=== PATIENT | male | born 2000 | race Caucasian/White ===

== ENCOUNTER 2024-01-04 23:37 | Emergency (ER) | payer MEDICAID, SELFPAY ==
[2024-01-04 23:38] VITALS: BMI 23.8
--- NOTE | 2024-01-04 23:42 | EKG_ITS ---
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
[2024-01-04 23:53] VITALS: BP 142/89; PULSE 85; RESP 18; TEMP 36.8; O2SAT 100
--- NOTE | 2024-01-05 00:11 | XR_ITS ---
Examination: Abdomen sonogram, Limited Date and time of exam: January 05, 2024 0217 hrs. Indications: Onset right upper abdominal pain beginning 4 days ago Technique: Real-time vallecillo scale transabdominal sonographic images of the upper abdomen obtained. Findings: Negative for cholelithiasis, negative for cholecystitis, gallbladder wall 0.3 cm no edema Common bile duct 0.2 cm Pancreatic head 2.9 cm Liver 14.5 cm smooth contour fatty infiltration no focal liver lesions Normal hepatopedal portal venous flow Patent IVC Impression: Normal gallbladder Fatty liver
--- NOTE | 2024-01-05 00:12 | EDRME_ITS ---
Rapid Medical Screening Exam COUNT INCLUDES THE [facility] Arrival date/time: 01/04/24 23:37 23M with no significant PMH presents to ED with 4 days of worsening RUQ/epigastric pain that radiates to chest. Patient also notes he's had some constipation and difficulty urinating, but denies dysuria and URI symptoms. Chief Complaint: Chest Pain Vital signs: Vital Signs Temperature 98.2 F 01/04/24 23:53 Pulse Rate 85 01/04/24 23:53 Respiratory Rate 18 01/04/24 23:53 Blood Pressure 142/89 H 01/04/24 23:53 Pulse Oximetry (%) 100 01/04/24 23:53 Oxygen Delivery Method Room Air 01/04/24 23:53
[2024-01-05] MEDS: ONDANSETRON ODT 4 MG TABRAP PO (00:25)
[2024-01-05 00:37] LABS: Collection Type, Urine Clean Catch
[2024-01-05 00:58] LABS: Alanine Aminotransferase 8 U/L (10-49); Albumin, Serum 5.1 gm/dL (3.5-5.0); Albumin/Globulin Ratio 1.8 (1.2-2.2); Alkaline Phosphatase 74 U/L (46-116); Anion Gap 10 (7-16); Aspartate Amino Transferase 15 U/L (0-34); BUN/Creatinine Ratio 10 Ratio (12-20); Basophils % (Auto) 0 % (0-2.5); Bilirubin,Total 0.6 mg/dL (0.3-1.2); Blood Urea Nitrogen 12 mg/dL (9-23); Chloride 103 mMol/L (98-107); Creatinine (Component) 1.2 mg/dL (0.6-1.3); Eosinophils % (Auto) 0 % (0-10); Estimated Creatinine Clearance 112.5 mL/min (>60); Globulin 2.8 gm/dL (2.3-3.5); Glucose 105 mg/dL (74-106); Hematocrit 45.9 % (41.0-53.0); Hemoglobin 16.6 g/dL (13.5-16.0); Immature Granulocytes % (Auto) 0 % (0-0); Immature Granulocytes Auto 0.04 Thou/mm3 (0.00-0.00); Lipase 29 U/L (12-53); Lymphocytes # (Auto) 2.5 Thou/mm3 (1.0-4.8); Lymphocytes % (Auto) 19 % (10-50); Mean Corpuscular HGB Conc 36.2 g/dl (31.0-37.0); Mean Corpuscular Hemoglobin 30.4 pg (25.0-35.0); Mean Corpuscular Volume 84 fL (80-100); Monocytes # (Auto) 0.7 Thou/mm3 (0.0-0.8); Monocytes % (Auto) 5 % (0-12); Neutrophils # (Auto) 10.1 Thou/mm3 (1.8-7.7); Neutrophils % (Auto) 75 % (37-80); Nucleated Red Blood Cell % 0 /100 WBC (0); Osmolality,Calculated 277 (275-295); Platelet Count 297 Thou/mm3 (140-440); Potassium 3.6 mMol/L (3.4-5.1); RDW Standard Deviation 36.2 fL (35.1-43.9); Red Blood Count 5.46 Miln/mm3 (4.50-5.90); Sodium 139 mMol/L (136-145); Total Protein 7.9 gm/dL (5.7-8.2); White Blood Count 13.4 Thou/mm3 (3.8-10.6); eGFR > 60 See Note
[2024-01-05 01:02] LABS: Bilirubin,Urine Negative (Negative); Blood,Urine Negative (Negative); Clarity,Urine Clear (Clear/Hazy); Color,Urine Yellow (Lt Yel-Yel); Glucose, Urine Negative (Negative); Ketones,Urine Negative (Negative); Leukocyte Esterase,Urine Positive (Negative); Nitrite,Urine Negative (Negative); Protein,Urine 1+ (Neg - Trace); Urobilinogen,Urine Negative mg/dL (0.0-1.0)
[2024-01-05 01:03] LABS: RBC,Urine 5 /hpf (0-3); Squamous Epithelial Cell,Urine < 1 /hpf (0-5); WBC,Urine 36 /hpf (0-5)
[2024-01-05 01:05] LABS: Amphetamine/Methamp Scrn,U Negative (Negative); Barbiturate Screen,Urine Negative (Negative); Benzodiazepines Screen,Urine Negative (Negative); Benzoylecgonine Screen, Ur Negative (Negative); Fentanyl Screen,Urine Negative (Negative); Opiate Screen,Urine Negative (Negative); THC Screen,Urine Positive (Negative)
[2024-01-05 01:11] LABS: Culture Indicated,Urine Yes
--- NOTE | 2024-01-05 01:27 | EDNOTE_ITS ---
ED Chest Pain RME/HPI General Chief Complaint: Chest Pain Stated Complaint: CHEST PAIN X 4 DAYS Arrival date/time: 01/04/24 23:37 Limitations: no limitations RME / HPI RME / HPI narrative: 01/04/24 23:37 23M with no significant PMH presents to ED with 4 days of worsening RUQ/epigastric pain that radiates to chest. Patient also notes he's had some constipation and difficulty urinating, but denies dysuria and URI symptoms. ----- Dr. Awad's Main ED Evaluation: 23yo male with no significant past medical history presents to the ED for a chief complaint of shortness of breath x 4 da ys. Patient states he woke up 4 days ago and began having shortness of breath. He reports associated chest pain (7 out of 10 in severity), right rib/RUQ pain, and nausea. He states his symptoms have been progressively getting worse over the last 6 hours, so he came in for evaluation. He denies any fever, chills, UTI symptoms or any other associated symptoms. Denies any history of similar symptoms. Denies any aggravating or alleviating factors. Patient endorses last smoking marijuana 5 days ago. Related Data Previous Rx's ?Medication ?Instructions ?Recorded ibuprofen 600 mg tablet 600 mg PO Q6-8HRPRN ##20 07/09/11 Allergies Allergy/AdvReac Type Severity Reaction Status Date / Time cephalexin [From Keflex] Allergy Mild Difficulty Verified 01/04/24 23:43 Breathing Review of Systems Review of Systems Systems Reviewed: All systems reviewed, normal except as documented ED Exam General Limitations: Present no limitations General appearance: Present alert and in no apparent distress Head Head exam: Present atraumatic Eye Eye exam: Present normal appearance, PERRL and EOMI ENT ENT exam: Present normal exam, normal oropharynx and mucous membranes moist Neck Neck exam: Present normal inspection, full ROM and trachea midline Chest Chest inspection: Present normal inspection and symmetric chest wall rise Respiratory Respiratory exam: Present normal lung sounds bilaterally Cardiovascular Cardiovascular exam: Present regular rate, normal rhythm and normal heart sounds Abdominal Exam Abdominal exam: Present soft and normal bowel sounds; Absent rebound or mass Extremities Exam Extremities exam: Present normal inspection and full ROM Back Exam Back exam: Present normal inspection and full ROM Neurological Exam Neurological exam: Present alert, oriented X3 and CN II-XII intact Psychiatric Psychiatric exam: Present normal affect and normal mood Skin Skin exam: Present warm, dry, intact and normal color; Absent pallor Course Quality Measures none Orders Category Date Time Status CT Screening NOW Care 01/05/24 01:32 Completed EKG (ED ONLY) *Do not use* NOW Care 01/04/24 23:42 Completed IV [Insert IV] NOW Care 01/05/24 01:[address] chest abdomen pelvis w Stat Exams 01/05/24 01:32 Taken EKG (ED Only) Stat Exams 01/04/24 23:42 Draft US gall bladder Stat Exams 01/05/24 00:11 Taken CBC Stat Lab 01/05/24 00:32 Completed CMP [Comprehensive Metabolic Panel] Stat Lab 01/05/24 00:32 Completed Drug Screen,Urine Stat Lab 01/05/24 00:25 Completed Lipase Stat Lab 01/05/24 00:32 Completed Urinalysis, C/S if Indicated Stat Lab 01/05/24 00:25 Completed Urine Culture Stat Lab 01/05/24 00:25 Received Ketorolac Inj [Toradol Inj] Med 01/05/24 01:34 Discontinued 30 mg IVP X1 ONE Ondansetron Inj [Zofran Inj] Med 01/05/24 01:34 Discontinued 4 mg IV X1 ONE Ondansetron Odt [Zofran Odt] Med 01/05/24 00:11 Discontinued 4 mg PO X1 ONE Sodium Chloride 0.9% 500 ml [Ns] 500 ml Med 01/05/24 01:32 Discontinued IV 999 mls/hr Vital Signs Vital signs: Vital Signs Temperature 98.2 F 01/04/24 23:53 Pulse Rate 85 01/04/24 23:53 Respiratory Rate 18 01/04/24 23:53 Blood Pressure 142/89 H 01/04/24 23:53 Pulse Oximetry (%) 100 01/04/24 23:53 Oxygen Delivery Method Room Air 01/04/24 23:53 Pulse ox is 100% on room air, which is normal according to my interpretation. Chest Pain Patient data External records reviewed:: [facility] previous records (Per chart review, patient has no previous ED visits or admissions to this facility.) Clinical information provided by:: patient Social determinants that could affect healthcare access:: substance use (smokes marijuana) Patient has the following chronic illnesses:: none How is presenting disease/condition affected by chronic disease/condition?: no chronic disease Evaluation data The following diagnostics were reviewed and interpreted by me:: lab results, radiology exam(s) and EKG tracing(s) Lab and/or radiology exams considered but not ordered:: none Interpretation Summary: WBC count is elevated at 13.4, CMP is normal, UDS is positive for marijuana, according to my interpretation. ----- I have personally reviewed the radiology data and agree with the radiologist's interpretation below: [facility] Preliminary Report Draft Patient: RAND ACEVEDO. Record#: [id number] Birthdate: 2000 Age/Sex: 23 / M Location: [facility] Attending Dr: Ordering Physician: Date of Service: Procedure(s): Accession Number(s): cc: ~ Right upper quadrant abdominal ultrasound. January 05, 2024 0217 hours Clinical history: RUQ/epigastric pain Technique: Grayscale and color flow images of the right upper quadrant are provided. Hepatic and portal veins were also imaged with color flow images. Comparison: No prior study is available for comparison. Findings: The liver is normal in size, measuring 14.5 cm and demonstrates slightly heterogeneous echotexture. There is smooth contour of the liver. No intrahepatic biliary ductal dilatation. The gallbladder is distended. No gallbladder calculus, wall thickening or pericholecystic fluid is demonstrated. Sonographic Roman sign is negative as per the technologist's note. The common bile duct is normal in caliber at 0.15 cm. The pancreatic body and tail are obscured by bowel gas.The inferior vena cava is unremarkable to the extent visualized. Impression: No sonographic evidence of cholelithiasis, acute cholecystitis or biliary obstruction. Slightly heterogeneous liver, likely fatty infiltration. Report Electronically Signed By: Dawson Bowen 01/05/2024 3:02:34 AM [EST] ------ [facility] Preliminary Report Draft Patient: RAND ACEVEDO. Record#: [id number] Birthdate: 2000 Age/Sex: 23 / M Location: [facility] Attending Dr: Ordering Physician: Date of Service: Procedure(s): Accession Number(s): cc: ~ CT scan of the chest, abdomen and pelvis with intravenous contrast (axial sections with sagittal and coronal reformats) January 05, 2024 0251 hours Clinical History: 23-yo right rib and ruq pain x 4 No prior study is available for comparison. Findings: The lungs are clear. There is no pleural effusion or pneumothorax. The aorta is unremarkable without evidence of dissection or aneurysm. No evidence of mediastinal mass or lymphadenopathy. There is no pericardial effusion. The liver, gallbladder, spleen, pancreas, adrenals and kidneys are unremarkable. No evidence of bowel obstruction. The appendix is within normal limits (coronal images 48-66/143). The urinary bladder is unremarkable. There is no free fluid or air. No fracture is identified. Impression: No visceral or bony injury to the chest, abdomen or pelvis. Report Electronically Signed By: Markie Siu 01/05/2024 3:33:41 AM [EST] Medications / Prescriptions Medications or Prescriptions considered but not ordered:: none Medication administrations:: Medication Administration History Discontinued Medications Sodium Chloride (Ns) 500 mls @ 999 mls/hr IV .Q31M ONE Stop: 01/05/24 02:02 Last Infusion: 01/05/24 03:25 Dose: Infused Documented By: Admin: 01/05/24 02:06 Dose: 999 mls/hr Documented By: PITO Ketorolac Tromethamine (Ketorolac Inj 30 Mg/Ml Vial) 30 mg IVP X1 ONE Stop: 01/05/24 01:35 Last Admin: 01/05/24 02:06 Dose: 30 mg Documented By: PITO Ondansetron HCl (Ondansetron Odt 4 Mg Tabrap) 4 mg PO X1 ONE; Protocol Stop: 01/05/24 00:12 Last Admin: 01/05/24 00:25 Dose: 4 mg Documented By: SRAVANTHI Ondansetron HCl (Ondansetron Inj 2 Mg/Ml Inj 2 Ml) 4 mg IV X1 ONE; Protocol Stop: 01/05/24 01:35 Last Admin: 01/05/24 02:06 Dose: 4 mg Documented By: PITO see above Consultations Consultation(s) initiated? (list below): No Diagnosis Chest Pain Differential Diagnosis: fracture of rib, pneumothorax, costochondritis and chest pain Most likely diagnosis given after review of the tests above:: see below Admission Indicated Admission indicated?: not indicated Admission Request Was there a request for admission?: No Disposition Plan Disposition Plan: Discharge Discharge Attestation Discharge Attestation: The patient and all family members were given an opportunity to ask questions and understood the discharge instructions. Discharge instructions specifically effects, indications for sooner follow up or return to the emergency department, and the expected course of current diagnosis. Patient condition: Stable Discharge Plan Plan Patient Disposition: HOME (Self Care) Patient condition on transfer: Stable Prescriptions/Referrals Prescriptions/Med Rec: No Action ibuprofen 600 MG tablet 600 mg PO Q6-8HRPRN Qty: 20 0RF Referrals: No Primary/Family,Physician [Primary Care Provider] - In 1 week Problem List Clinical Impression: Atypical chest pain Patient/Caregiver Discharge Instructions Education Materials: ED Chest Pain, Uncertain Cause Additional Instructions: Return to the emergency department for worsening symptoms or any other concerns. Please follow-up with your primary care physician as needed for pain. Stay hydrated with Pedialyte and Gatorade. Print Language: Samoan Stand Alone Forms: [facility] Award Info., Patient Portal Info Letter
--- NOTE | 2024-01-05 01:32 | XR_ITS ---
Examination: CT chest with intravenous contrast CT abdomen with intravenous contrast CT pelvis with intravenous contrast 2-D coronal and sagittal reconstructions Time of exam: January 05, 2024 0251 hrs. Indications: Chest pain right rib pain right upper abdominal pain beginning 4 days ago CTDI: vol (mGy) : 8.92 DLP: (mGycm): 837 Technique: Multiple axial images of the chest, abdomen and pelvis with intravenous contrast, 3.0 mm slice thickness. Images obtained post intravenous injection Isovue 370 60 cc. 2-D sagittal and coronal reconstructions. Low dose protocols were performed. One or more of the following dose reduction techniques were used; automated exposure control, adjustment of the mA and/or KV according to patient size, use of iterative reconstruction technique. Findings: Thoracic aorta pulmonary arteries intact No hemopericardium No mediastinal lymphadenopathy No pneumonia, pneumothorax, pulmonary contusion or hemothorax The manubrium and the body the sternum the thoracic and lumbar vertebral bodies appear intact Ribs appear intact No focal liver splenic or renal laceration, no perinephric hematoma Contracted gallbladder No pancreatic mass Abdominal aorta intact No bowel obstruction Negative for pneumoperitoneum Normal appendix No diverticulitis Urinary bladder intact Hips bones of the pelvis intact Impression: Thoracic aorta pulmonary arteries intact No hemopericardium, pneumothorax, pulmonary contusion or hemothorax Abdominal aorta intact No abdominal parenchymal laceration No free blood in the abdomen or pelvis Osseous structures appear intact
[2024-01-05 02:02] VITALS: BP 140/87; PULSE 76; RESP 15; O2SAT 100
[2024-01-05] MEDS: SODIUM CHLORIDE 0.9% 500 ML 500 ML 999 ML IV (02:06)
[2024-01-05] MEDS: KETOROLAC INJ 30 MG/ML VIAL IVP (02:06)
[2024-01-05] MEDS: ONDANSETRON INJ 2 MG/ML INJ 2 ML 4 MG IV (02:06)
--- NOTE | 2024-01-05 03:02 | PRELIM_ITS ---
Right upper quadrant abdominal ultrasound. January 05, 2024 0217 hours Clinical history: RUQ/epigast preston pain Technique: Grayscale and color flow images of the right upper quadrant are provided. Hepatic and portal veins were also imaged with color flow images. Comparison: No prior study is available fo r comparison. Findings:The liver is normal in size, measuring 14.5 cm and demonstrates slightly heter ogeneous echotexture. There is smooth contour of the liver. No intrahepatic biliary ductal dilatation . The gallbladder is distended. No gallbladder calculus, wall thickening or pericholecystic fluid is demonstrated. Sonographic Roman sign is negative as per the technologist's note. The common bile paulo t is normal in caliber at 0.15 cm. The pancreatic body and tail are obscured by bowel gas.The inferio r vena cava is unremarkable to the extent visualized.Impression:No sonographic evidence of cholelithi asis, acute cholecystitis or biliary obstruction. Slightly heterogeneous liver, likely fatty infiltra tion. Report Electronically Signed By: Dawson Bowen 01/05/2024 3:02:34 AM [EST]
--- NOTE | 2024-01-05 03:34 | PRELIM_ITS ---
CT scan of the chest, abdomen and pelvis with intravenous contrast (axial sections with sagittal and coronal reformats) January 05, 2024 0251 hours Clinical History: 23-yo right rib and ruq pain x 4 No prior study is available for comparison. Findings:The lungs are clear. There is no pleural effusion or pneumothorax. The aorta is unremarkable without evidence of dissection or aneurysm. No evidence of mediastinal mass or lymphadenopathy. There is no pericardial effusion.The liver, gallbladder, spleen , pancreas, adrenals and kidneys are unremarkable.No evidence of bowel obstruction. The appendix is w ithin normal limits (coronal images 48-66/143).The urinary bladder is unremarkable. There is no free fluid or air.No fracture is identified.Impression:No visceral or bony injury to the chest, abdomen or pelvis. Report Electronically Signed By: Markie Siu 01/05/2024 3:33:41 AM [EST]
[2024-01-05 04:55] VITALS: BP 113/69; PULSE 55; RESP 16; TEMP 37.2; O2SAT 100
== END 2024-01-05 05:05 | disposition home or self-care (01) ==
PROVIDERS: Physician Assistant; Emergency Provider Emergency Medicine
DX: K76.89 Other specified diseases of liver (principal); R07.89 Other chest pain; R10.13 Epigastric pain; R07.81 Pleurodynia
CPT/HCPCS: 36415; 71260; 74177; 76705; 80053; 80307; 81001; 83690; 85025; 87086; 93005; 96361; 96374; 96375; 99285; A4649; J1885; J2405; J7040; Q0162; Q9967

== ENCOUNTER 2024-06-16 22:28 | Emergency (ER) | payer MEDICAID, SELFPAY ==
[2024-06-16 22:28] VITALS: BMI 25.0
[2024-06-16 23:06] VITALS: BP 133/88; PULSE 82; RESP 18; TEMP 37.3; O2SAT 96
[2024-06-16 23:48] LABS: Lactate (Lactic Acid) 1.6 mMol/L (0.4-2.0)
[2024-06-16 23:49] LABS: Basophils % (Auto) 0 % (0-2.5); Eosinophils % (Auto) 0 % (0-10); Hematocrit 47.5 % (41.0-53.0); Hemoglobin 17.3 g/dL (13.5-16.0); Immature Granulocytes % (Auto) 0 % (0-0); Immature Granulocytes Auto 0.03 Thou/mm3 (0.00-0.00); Lymphocytes % (Auto) 27 % (10-50); Mean Corpuscular HGB Conc 36.4 g/dl (31.0-37.0); Mean Corpuscular Hemoglobin 30.7 pg (25.0-35.0); Mean Corpuscular Volume 84 fL (80-100); Monocytes # (Auto) 0.7 Thou/mm3 (0.0-0.8); Monocytes % (Auto) 6 % (0-12); Neutrophils # (Auto) 7.6 Thou/mm3 (1.8-7.7); Neutrophils % (Auto) 66 % (37-80); Nucleated Red Blood Cell % 0 /100 WBC (0); Platelet Count 283 Thou/mm3 (140-440); RDW Standard Deviation 35.8 fL (35.1-43.9); Red Blood Count 5.63 Miln/mm3 (4.50-5.90); White Blood Count 11.4 Thou/mm3 (3.8-10.6)
[2024-06-16] MEDS: ONDANSETRON ODT 4 MG TABRAP PO (23:58)
[2024-06-17] LABS: Amphetamine/Methamp Scrn,U Negative (Negative); Barbiturate Screen,Urine Negative (Negative); Benzodiazepines Screen,Urine Negative (Negative); Benzoylecgonine Screen, Ur Negative (Negative); Fentanyl Screen,Urine Negative (Negative); Opiate Screen,Urine Negative (Negative); THC Screen,Urine Positive (Negative)
--- NOTE | 2024-06-17 | XR_ITS ---
Examination: Abdomen sonogram, Limited Date and time of exam: June 17, 2024 0019 hours INDICATIONS: Right upper abdominal pain with nausea beginning 3 hours ago Technique: Real-time vallecillo scale transabdominal sonographic images of the upper abdomen obtained. Findings: Normal gallbladder Normal common bile duct 0.2 cm Pancreatic head 2.2 cm Liver 14.0 cm smooth contour and no focal liver lesions Normal hepatopedal portal venous flow Patent IVC IMPRESSION: Normal gallbladder Normal common bile duct. Liver normal size no focal liver lesions
[2024-06-17 00:32] LABS: Alcohol, Blood Medical < 3.0 mg/dL (0-10.0); Procalcitonin 0.06 ng/ml (0.0-0.49)
[2024-06-17 00:34] LABS: Alanine Aminotransferase 8 U/L (10-49); Albumin, Serum 4.9 gm/dL (3.5-5.0); Albumin/Globulin Ratio 1.8 (1.2-2.2); Alkaline Phosphatase 76 U/L (46-116); Anion Gap 10 (7-16); Aspartate Amino Transferase 17 U/L (0-34); BUN/Creatinine Ratio 12 Ratio (12-20); Bilirubin,Total 0.7 mg/dL (0.3-1.2); Blood Urea Nitrogen 14 mg/dL (9-23); Calcium 10.1 mg/dL (8.3-10.6); Calcium (Corrected) 10.1 mg/dL (8.5-10.1); Carbon Dioxide 26.4 mMol/L (20.0-31.0); Chloride 105 mMol/L (98-107); Creatinine (Component) 1.2 mg/dL (0.6-1.3); Estimated Creatinine Clearance 108.5 mL/min (>60); Globulin 2.8 gm/dL (2.3-3.5); Glucose 90 mg/dL (74-106); Lipase 25 U/L (12-53); Osmolality,Calculated 281 (275-295); Potassium 4.1 mMol/L (3.4-5.1); Sodium 141 mMol/L (136-145); Total Protein 7.7 gm/dL (5.7-8.2); eGFR > 60 See Note
[2024-06-17] MEDS: NAPROXEN 250 MG TABLET 500 MG PO (00:47)
--- NOTE | 2024-06-17 01:28 | PRELIM_ITS ---
Gallbladder ultrasound with Doppler and wave Doppler spectral analysis. June 17, 2024 at 0019 hours Clinical history: Right upper quadrant pain. Comparison: None available at the time of this report. Findings: The visualized liver is normal in echogenicity without mass or ductal dilatation. No gallbladder calculus, wall thickening or pericholecystic fluid is identified. The common duct is normal in caliber at 2.2 mm. No free fluid is demonstrated on the submitted images. The portal vein is patent with hepatopetal flow normal wave Doppler spectral analysis. The hepatic veins are patent with normal wave Doppler spectral analysis. The IVC is patent with normal wave Doppler spectral analysis. Roman's sign is not available at the time of this report. Impression: Unremarkable gallbladder sonogram. Report Electronically Signed By: Chad Amezcua 06/17/2024 1:27:15 AM [EST]
--- NOTE | 2024-06-17 02:44 | PD.EDABDPN ---
ED Abdominal Pain RME/HPI General Chief Complaint: Abdominal Pain Stated complaint: RIGHT LOWER ABD PAIN Time seen by provider: 06/16/24 23:17 Arrival date/time: 06/16/24 22:28 24M with history of marijuana use presents to ED with several days of RUQ and N/V. Patient denies dysuria/hematuria and diarrhea. Limitations: no limitations Related Data Previous Rx's ?Medication ?Instructions ?Recorded ibuprofen 600 mg tablet 600 mg PO Q6-8HRPRN ##20 07/09/11 Allergies Allergy/AdvReac Type Severity Reaction Status Date / Time cephalexin (From Keflex) Allergy Mild Difficulty Verified 01/04/24 23:43 Breathing Review of Systems Review of Systems Systems Reviewed: All systems reviewed, normal except as documented Constitutional Constitutional: Reports system reviewed and no additional complaints, except as documented, Denies fever(s) and Denies headache(s) ENT Ears, Nose, Mouth, and Throat: Denies disequilibrium and Denies headache(s) Cardiovascular Cardiovascular: Reports system reviewed and no additional complaints, except as documented, Denies chest pain and Denies dyspnea Respiratory Respiratory: Reports system reviewed and no additional complaints, except as documented, Denies cough and Denies dyspnea Gastrointestinal Gastrointestinal: Reports system reviewed and no additional complaints, except as documented, Reports as per HPI, Reports abdominal pain, Reports nausea and Reports vomiting Neurologic Neurologic: Reports system reviewed and no additional complaints, except as documented, Denies confusion, Denies disequilibrium and Denies headache(s) Psychiatric Psychiatric: Denies confusion Past Medical History Past Medical History CARDIAC: Negative Cardiac Disorders or Congestive Heart Failure RESPIRATORY: Negative Chronic Obstructive Pulmonary Disease (COPD) or Asthma GENITOURINARY: Negative Renal Disease ENDOCRINE: Negative Diabetes Mellitus Type 1 or Diabetes Mellitus Type 2 Social History SMOKING STATUS: Never smoker ED Exam General Limitations: Present no limitations General appearance: Present alert and in no apparent distress Head Head exam: Present atraumatic Eye Eye exam: Present normal appearance, PERRL and EOMI ENT ENT exam: Present normal exam, normal oropharynx and mucous membranes moist Neck Neck exam: Present normal inspection, full ROM and trachea midline Chest Chest inspection: Present normal inspection and symmetric chest wall rise Respiratory Respiratory exam: Present normal lung sounds bilaterally Cardiovascular Cardiovascular exam: Present regular rate, normal rhythm and normal heart sounds Abdominal Exam Abdominal exam: Present soft and normal bowel sounds Abdominal tenderness: Present RUQ Extremities Exam Extremities exam: Present normal inspection and full ROM Back Exam Back exam: Present normal inspection and full ROM Neurological Exam Neurological exam: Present alert, oriented X3 and CN II-XII intact Psychiatric Psychiatric exam: Present normal affect and normal mood Skin Skin exam: Present warm, dry, intact and normal color Course Quality Measures none Orders Category Date Time Status US gall bladder Stat Exams 06/17/24 00:00 Taken Alcohol, Blood Medical Stat Lab 06/16/24 23:32 Completed CBC Stat Lab 06/16/24 23:32 Completed CMP [Comprehensive Metabolic Panel] Stat Lab 06/16/24 23:32 Completed Drug Screen,Urine Stat Lab 06/16/24 23:29 Completed Lactate (Lactic Acid) Stat Lab 06/16/24 23:32 Completed Lipase Stat Lab 06/16/24 23:32 Completed Procalcitonin Stat Lab 06/16/24 23:32 Completed Naproxen [Naprosyn] Med 06/17/24 00:35 Discontinued 500 mg PO X1 ONE Ondansetron Odt [Zofran Odt] Med 06/16/24 23:18 Discontinued 4 mg PO X1 ONE Vital Signs Vital signs: Vital Signs Temperature 99.2 F 06/16/24 23:06 Pulse Rate 82 06/16/24 23:06 Respiratory Rate 18 06/16/24 23:06 Blood Pressure 133/88 H 06/16/24 23:06 Pulse Oximetry (%) 96 06/16/24 23:06 Oxygen Delivery Method Room Air 06/16/24 23:06 O2 at 96% on RA and WNLs Abdominal Pain MDM MDM Narrative MDM Narrative:: 24M with history of marijuana use presents to ED with several days of RUQ and N/V. Patient denies dysuria/hematuria and diarrhea. Physical exam reveals RUQ tenderness, but no RLQ tenderness. No flank tenderness. Patient is afebrile, calm, and alert. US unremarkable. Minimal leukocytosis. CMP, lipase normal. Alcohol/tox screen clean, except for admitted marijuana use. Procal/lactate normal. Meds improved symptoms somewhat. Patient declines CT as he doesn't want to wait anymore, but will return if worsening. Patient data External records reviewed:: [facility] previous records Clinical information provided by:: patient Social determinants that could affect healthcare access:: substance use Patient has the following chronic illnesses:: ab pain How is presenting disease/condition affected by chronic disease/condition?: exacerbated by Evaluation data The following diagnostics were reviewed and interpreted by me:: lab results and radiology exam(s) Lab and/or radiology exams considered but not ordered:: ordered Interpretation Summary: above Medications / Prescriptions Medications or Prescriptions considered but not ordered:: ordered Medication administrations:: Medication Administration History Discontinued Medications Naproxen (Naproxen 250 Mg Tablet) 500 mg PO X1 ONE Stop: 06/17/24 00:36 Last Admin: 06/17/24 00:47 Dose: 500 mg Documented By: JEAN-PIERRE Ondansetron HCl (Ondansetron Odt 4 Mg Tabrap) 4 mg PO X1 ONE; Protocol Stop: 06/16/24 23:19 Last Admin: 06/16/24 23:58 Dose: 4 mg Documented By: above Consultations Consultation(s) initiated? (list below): No Diagnosis Differential diagnosis abdominal pain: abdominal pain, acute appendicitis, calculus of kidney, constipation, diverticulitis, gastroenteritis, pancreatitis, small bowel obstruction and other (biliary disease) Most likely diagnosis given after review of the tests above:: ab pain Admission Indicated Admission indicated?: not indicated Admission Request Was there a request for admission?: No Disposition Plan Disposition Plan: Discharge Discharge Attestation Discharge Attestation: The patient and all family members were given an opportunity to ask questions and understood the discharge instructions. Discharge instructions specifically effects, indications for sooner follow up or return to the emergency department, and the expected course of current diagnosis. Patient condition: Stable Discharge Plan Plan Patient Disposition: HOME (Self Care) Disposition Comment: Stable Prescriptions/Referrals Prescriptions/Med Rec: No Action ibuprofen 600 MG tablet 600 mg PO Q6-8HRPRN Qty: 20 0RF Referrals: No Primary/Family,Physician [Primary Care Provider] - In 1 week Problem List Clinical Impression: Abdominal pain Patient/Caregiver Discharge Instructions Education Materials: Abdominal Pain Additional Instructions: Please follow-up with PCP within 24-48 hours and return immediately if symptoms worsen. Print Language: Serbian Stand Alone Forms: Patient Portal Info Letter LEO/PERRY Supervising Physician LEO/PERRY Supervising Physician: Dr. Michael
== END 2024-06-17 02:02 | disposition home or self-care (01) ==
PROVIDERS: Physician Assistant; Emergency Provider Emergency Medicine
DX: R10.31 Right lower quadrant pain (principal)
CPT/HCPCS: 36415; 76705; 80053; 80307; 80320; 83605; 83690; 84145; 85025; 99284; Q0162; A9270; G0480

== ENCOUNTER 2024-08-29 19:32 | Emergency (ER) | payer MEDICAID, SELFPAY ==
[2024-08-29 19:33] VITALS: BMI 24.3
[2024-08-29 19:55] VITALS: BP 142/94; PULSE 99; RESP 18; TEMP 37.2; O2SAT 97
--- NOTE | 2024-08-29 20:12 | EDNOTE_ITS ---
ED Dental RME/HPI General Chief complaint: Dental/Oral/Throat Stated complaint: I HAVE THRUSH, R. UPPER ABD PAIN, NAUSEA Time Seen by Provider: 08/29/24 19:33 Source: patient Arrival date/time: 08/29/24 19:32 This is a case of 24-year-old male who came in in the emergency room due to mult iple issue patient states that he has abdominal pain the day with nausea but no vomiting no constipation diarrhea pain is burning in character mainly on the epigastric area radiating to the right upper quadrant denies any blood in stool patient is also complaining of oral thrush on the mouth and sore throat no other symptoms noted patient also requested for GC culture but denies any exposure to STD Limitations: no limitations Related Data Previous Rx's ?Medication ?Instructions ?Recorded ibuprofen 600 mg tablet 600 mg PO Q6-8HRPRN ##20 07/02 azithromycin 250 mg tablet See Rx Instructions PO .COM PLEX #6 08/29/24 (Zithromax Z-Db) tabs fluconazole 100 mg tablet 100 mg PO QDAY #5 tabs 08/29 lidocaine HCl 2 % mucosal solution 10 ml PO Q4HR PRN s orethroat #100 08/29/24 (Lidocaine Viscous) mL nystatin 100,000 unit/mL oral 5 ml PO QID 5 days #100 mL 08/29/24 suspension omeprazole 40 mg capsule,delayed 40 mg PO QDAY #30 cap s 08/29/24 release ondansetron 4 mg disintegrating 4 mg PO Q8H PRN nausea and 08/29/24 tablet vomiting #20 tabs sulfamethoxazole 800 1 tab PO BID 10 days #20 tab s 08/29/24 mg-trimethoprim 160 mg tablet (Bactrim DS) Allergies Allergy/AdvReac Type Severity Reaction Status Date / Time cephalexin (From Keflex) Allergy Mild Difficulty Verified 08/29/24 19:33 Breathing Review of Systems Review of Systems Systems Reviewed: All systems reviewed, normal except as documented Constitutional Constitutional: Reports system reviewed and no additional complaints, except as documented, Denies chills and Denies fever(s) ENT Ears, Nose, Mouth, and Throat: Denies dysphagia, Denies odynophagia and Reports other (Oral thrush sore throat) Cardiovascular Cardiovascular: Reports system reviewed and no additional complaints, except as documented, Reports as per HPI, Denies acrocyanosis and Denies chest pain Respiratory Respiratory: Reports system reviewed and no additional complaints, except as documented and Reports as per HPI Gastrointestinal Gastrointestinal: Reports system reviewed and no additional complaints, except as documented, Reports abdominal pain, Denies belching, Denies bloating, Denies change in bowel habits, Denies change in stool character, Denies coffee ground emesis, Denies constipation, Denies cramping, Denies diarrhea, Denies dyspepsia, Denies dysphagia, Denies early satiety, Denies excessive flatus, Denies fecal incontinence, Denies heartburn, Denies hematemesis, Denies hematochezia, Denies loose stools, Denies melena, Reports nausea, Denies odynophagia, Denies tenesmus and Denies vomiting Genitourinary Genitourinary: Reports system reviewed and no additional complaints, except as documented and Denies dysuria Neurologic Neurologic: Reports system reviewed and no additional complaints, except as documented and Reports as per HPI Past Medical History Past Medical History CARDIAC: Negative Cardiac Disorders or Congestive Heart Failure RESPIRATORY: Negative Chronic Obstructive Pulmonary Disease (COPD) or Asthma GENITOURINARY: Negative Renal Disease ENDOCRINE: Negative Diabetes Mellitus Type 1 or Diabetes Mellitus Type 2 Social History SMOKING STATUS: Former smoker ED Exam General Limitations: Present no limitations General appearance: Present alert, in no apparent distress and other (Patient is awake alert oriented not in distress nontoxic looking well-hydrated well- nourished) Head Head exam: Present atraumatic, normocephalic and normal inspection Eye Eye exam: Present normal appearance, PERRL and EOMI ENT ENT exam: Present normal exam, normal oropharynx, mucous membranes moist and other (Nose and ear exam is normal patient have a white patch on the anterior tongue suggestive of oral thrush patient noted to have red pharynx and tonsils but not swollen no exudate no peritonsillar abscess no muffled voice no hot potato voice no drooling of saliva) Neck Neck exam: Present normal inspection, full ROM, trachea midline and other (No neck mass no lymphadenopathy negative meningeal sign) Chest Chest inspection: Present normal inspection and symmetric chest wall rise; Absent tenderness or rash Respiratory Respiratory exam: Present normal lung sounds bilaterally; Absent respiratory distress, wheezes, stridor, accessory muscle use or prolonged expiratory phase Cardiovascular Cardiovascular exam: Present regular rate and normal rhythm; Absent bradycardia, tachycardia, normal heart sounds, systolic murmur or diastolic murmur Abdominal Exam Abdominal exam: Present soft, tenderness (Mild tenderness in epigastric area and right upper quadrant), normal bowel sounds and other (Negative CVA tenderness); Absent distention, guarding, rebound, rigidity, diminished bowel sounds, hyperactive bowel sounds, hypoactive bowel sounds, organomegaly, trauma, incision, psoas sign, obturator sign, heel tap sign, Roman's sign, Rovsing's sign, tenderness at McBurney's Point, ascites or pulsatile mass Abdominal tenderness: Present RUQ, epigastrium and mild Extremities Exam Extremities exam: Present normal inspection and full ROM Back Exam Back exam: Present normal inspection and full ROM Neurological Exam Neurological exam: Present alert, oriented X3, CN II-XII intact, normal gait and reflexes normal; Absent motor sensory deficit Psychiatric Psychiatric exam: Present normal affect and normal mood Skin Skin exam: Present warm, dry, intact and normal color Course Quality Measures none Orders Category Date Time Status US gall bladder Stat Exams 08/29/24 20:13 Completed CBC Stat Lab 08/29/24 20:23 Completed CMP [Comprehensive Metabolic Panel] Stat Lab 08/29/24 20:23 Completed Chlamydia/GC/TV - PCR Stat Lab 08/29/24 Ordered Lipase Stat Lab 08/29/24 20:23 Completed Urinalysis Stat Lab 08/29/24 20:57 Completed Ketorolac Inj [Toradol Inj] Med 08/29/24 21:30 Discontinued 30 mg IM X1 ONE Ondansetron Odt [Zofran Odt] Med 08/29/24 20:03 Discontinued 4 mg PO X1 ONE Trimethoprim/Sulfa 160/800 Ds [Bactrim Ds] Med 08/29/24 21:42 Discontinued 1 tab PO X1 ONE Vital Signs Vital signs: Vital Signs Temperature 98.9 F 08/29/24 19:55 Pulse Rate 99 08/29/24 19:55 Respiratory Rate 18 08/29/24 19:55 Blood Pressure 142/94 H 08/29/24 19:55 Pulse Oximetry (%) 97 08/29/24 19:55 Oxygen Delivery Method Room Air 08/29/24 19:55 Patient is afebrile not tachycardic not tachypneic BP stable not hypoxic oxygen saturation is 97% in room air Dental / Oral MDM Narrative MDM Narrative:: This is a case of 24-year-old male who came in in the emergency room due to multiple issue patient states that he has abdominal pain the day with nausea but no vomiting no constipation diarrhea pain is burning in character mainly on the epigastric area radiating to the right upper quadrant denies any blood in stool patient is also complaining of oral thrush on the mouth and sore throat no other symptoms noted patient also requested for GC culture but denies any exposure to STD physical examination patient is awake alert oriented not in distress nontoxic looking well-hydrated well-nourished excellent skin turgor patient HEENT exam is normal except pharynx and throat were red but no swelling no exudate no drooling of saliva patient can speak full sentences no muffled voice no hot potato voice patient also noted to have a white patches on the mouth suggestive of oral thrush negative meningeal sign no lymphadenopathy abdominal exam is benign nonsurgical mild tenderness in epigastric area and right upper quadrant no guarding no rebound no rigidity negative psoas negative straight or negative Rovsing's negative Kelli's negative Roman sign negative CVA tenderness blood test showed mild leukocytosis possibly due to urinary tract infection patient noted WBC in the urine no anemia platelets normal kidney and liver function is normal no electrolyte imbalance lipase normal ultrasound of the gallbladder is normal based on the physical examination and history the result of blood test and imaging patient will be treated as gastritis and urinary tract infection patient was discharged with omeprazole for gastritis and will follow-up with PCP to be referred to GI specialist for gastritis modified diet is also advised patient was also given Bactrim for urinary tract infection GC was also tested per patient request patient refused treatment at this time he opted to wait for the result patient denies any penile discharge or any symptoms or any urinary symptoms patient was also treated for acute pharyngitis and given with azithromycin and lidocaine viscous for pain patient was also given fluconazole and nystatin for oral thrush at this point patient is stable to be discharged patient will follow-up with PCP in 2 days for reevaluation return precaution to ER for any worsening symptoms was also discussed with the patient patient understood the discharge instruction Patient was discharged with comfortable condition walking with stable gait. Patient verbalized no further complains explained diagnosis and answered patient question. Patient is comfortable with the proposed management plan including the need to follow up with his/her primary care physician and any specialist if applicable Discussed patient for any urgent condition or worsening sx, He/She needed to go to emergency room immediately or call 911. Patient acknowledge the responsibility to follow up as instructed and to monitor her/his symptoms. For any persistence of the symptoms for more than 3-5 days return precaution viral domínguez. Discussed the result of the test and was given printed discharge instruction Patient data External records reviewed:: [facility] previous records Clinical information provided by:: patient Social determinants that could affect healthcare access:: none Patient has the following chronic illnesses:: None How is presenting disease/condition affected by chronic disease/condition?: no chronic disease Evaluation data The following diagnostics were reviewed and interpreted by me:: lab results and radiology exam(s) Lab and/or radiology exams considered but not ordered:: Reviewed Interpretation Summary: Reviewed Medications / Prescriptions Medications or Prescriptions considered but not ordered:: Given Medication administrations:: Medication Administration History Discontinued Medications Ketorolac Tromethamine (Ketorolac Inj 30 Mg/Ml Vial) 30 mg IM X1 ONE Stop: 08/29/24 21:31 Ondansetron HCl (Ondansetron Odt 4 Mg Tabrap) 4 mg PO X1 ONE; Protocol Stop: 08/29/24 20:04 Last Admin: 08/29/24 20:46 Dose: 4 mg Documented By: Trimethoprim/Sulfamethoxazole (Trimethoprim/Sulfa 160/800 Ds Tablet) 1 tab PO X1 ONE Stop: 08/29/24 21:43 Given Consultations Consultation(s) initiated? (list below): No Diagnosis Dental Differential Diagnosis: gingival abscess, dental caries, toothache and dental abscess Most likely diagnosis given after review of the tests above:: Oral thrush acute pharyngitis Admission Indicated Admission indicated?: not indicated Explain why admission is indicated or not indicated:: Not indicated Admission Request Was there a request for admission?: No Admission Attestation Admission request attestation: Not indicated Disposition Plan Disposition Plan: Discharge Discharge Attestation Discharge Attestation: The patient and all family members were given an opportunity to ask questions and understood the discharge instructions. Discharge instructions specifically effects, indications for sooner follow up or return to the emergency department, and the expected course of current diagnosis. Patient condition: Stable Discharge Plan Plan Patient Disposition: HOME (Self Care) Patient condition on transfer: Stable Prescriptions/Referrals Prescriptions/Med Rec: New azithromycin [Zithromax Z-Db] 250 mg tablet See Rx Instructions .ROUTE .COMPLEX Qty: 6 0RF Rx Instructions: For 250 mg dose pack: take 500 mg today (day 1), then 250 mg for 4 days (days 2-5) fluconazole 100 mg tablet 100 mg PO QDAY Qty: 5 0RF nystatin 100,000 unit/mL suspension 5 ml PO QID 5 Days Qty: 100 0RF Rx Instructions: swish and swallow lidocaine HCl [Lidocaine Viscous] 2 % solution 10 ml PO Q4HR PRN (Reason: sorethroat) Qty: 100 0RF sulfamethoxazole-trimethoprim [Bactrim DS] 800-160 mg tablet 1 tab PO BID 10 Days Qty: 20 0RF ondansetron 4 mg tablet,disintegrating 4 mg PO Q8H PRN (Reason: nausea and vomiting) Qty: 20 0RF omeprazole 40 mg capsule,delayed release(DR/EC) 40 mg PO QDAY Qty: 30 0RF No Action ibuprofen 600 MG tablet 600 mg PO Q6-8HRPRN Qty: 20 0RF Problem List Clinical Impression: Acute pharyngitis, Candidiasis of mouth, Abdominal pain, Gastritis, Urinary tract infection Patient/Caregiver Discharge Instructions Education Materials: Abdominal Pain, Urinary Tract Infections in Men, Self-Care for Sore Throats, Rashmi Infection: Thrush, ED Gastritis (Adult) Additional Instructions: Follow-up with your primary care physician in 2 days for reevaluation worsening symptoms or any emergent condition call 911 or go to the nearest emergency room take your medication as directed finish the course of antibiotic warm saline gargle is advised increase fluid intake follow up with PCP in 2 days to be referred to GI specialist for gastritis avoid skipping meals avoid spicy foods avoid fatty fried high cholesterol food avoid alcohol soda coffee Print Language: Greenlandic Stand Alone Forms: [facility] Award Info., Patient Portal Info Letter 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
--- NOTE | 2024-08-29 20:13 | XR_ITS ---
Examination: Abdomen sonogram, Limited Date and time of exam: August 29 2024.28 hours INDICATIONS: Epigastric pain beginning 3 days ago Technique: Real-time vallecillo scale transabdominal sonographic images of the upper abdomen obtained. Findings: Normal gallbladder. Normal common bile duct 0.3 cm Pancreatic head 1.9 cm Liver 15.2 cm fatty infiltration no focal liver lesions Normal hepatopedal portal venous flow Patent IVC IMPRESSION: Normal gallbladder. Normal common bile duct
[2024-08-29] MEDS: ONDANSETRON ODT 4 MG TABRAP PO (20:46)
[2024-08-29 20:49] LABS: Basophils # (Auto) 0.1 Thou/mm3 (0.0-0.2); Basophils % (Auto) 0 % (0-2.5); Eosinophils # (Auto) 0.0 Thou/mm3 (0.0-0.5); Eosinophils % (Auto) 0 % (0-10); Hematocrit 47.8 % (41.0-53.0); Hemoglobin 17.0 g/dL (13.5-16.0); Immature Granulocytes Auto 0.04 Thou/mm3 (0.00-0.00); Lymphocytes # (Auto) 2.1 Thou/mm3 (1.0-4.8); Lymphocytes % (Auto) 19 % (10-50); Mean Corpuscular HGB Conc 35.6 g/dl (31.0-37.0); Mean Corpuscular Hemoglobin 30.6 pg (25.0-35.0); Mean Corpuscular Volume 86 fL (80-100); Monocytes # (Auto) 0.6 Thou/mm3 (0.0-0.8); Monocytes % (Auto) 5 % (0-12); Neutrophils # (Auto) 8.3 Thou/mm3 (1.8-7.7); Neutrophils % (Auto) 75 % (37-80); Nucleated Red Blood Cell # 0.00 Thou/mm3 (0.00-0.00); Nucleated Red Blood Cell % 0 /100 WBC (0); Platelet Count 283 Thou/mm3 (140-440); RDW Standard Deviation 37.6 fL (35.1-43.9); Red Blood Count 5.56 Miln/mm3 (4.50-5.90); White Blood Count 11.1 Thou/mm3 (3.8-10.6)
[2024-08-29 21:12] LABS: Collection Type, Urine Voided; Squamous Epithelial Cell,Urine 0 /hpf (0-5)
[2024-08-29 21:13] LABS: Alanine Aminotransferase 12 U/L (10-49); Albumin, Serum 4.9 gm/dL (3.5-5.0); Albumin/Globulin Ratio 1.6 (1.2-2.2); Alkaline Phosphatase 76 U/L (46-116); Anion Gap 14 (7-16); Aspartate Amino Transferase 20 U/L (0-34); BUN/Creatinine Ratio 8 Ratio (12-20); Bilirubin,Total 0.9 mg/dL (0.3-1.2); Blood Urea Nitrogen 9 mg/dL (9-23); Calcium 10.1 mg/dL (8.3-10.6); Calcium (Corrected) 10.1 mg/dL (8.5-10.1); Carbon Dioxide 24.3 mMol/L (20.0-31.0); Chloride 104 mMol/L (98-107); Creatinine (Component) 1.2 mg/dL (0.6-1.3); Estimated Creatinine Clearance 111.5 mL/min (>60); Globulin 3.1 gm/dL (2.3-3.5); Glucose 100 mg/dL (74-106); Lipase 23 U/L (12-53); Osmolality,Calculated 281 (275-295); Potassium 4.0 mMol/L (3.4-5.1); Sodium 142 mMol/L (136-145); Total Protein 8.0 gm/dL (5.7-8.2); eGFR > 60 See Note
[2024-08-29 21:19] LABS: Amorphous Crystals,Urine Present (Absent); Bacteria,Urine Rare; Bilirubin,Urine Negative (Negative); Blood,Urine Negative (Negative); Clarity,Urine Clear (Clear/Hazy); Color,Urine Lt-Yellow (Lt Yel-Yel); Glucose, Urine Negative (Negative); Ketones,Urine 2+ (Negative); Leukocyte Esterase,Urine Positive (Negative); Nitrite,Urine Negative (Negative); PH,Urine 7.0 (5.0-7.0); Protein,Urine Negative (Neg - Trace); RBC,Urine 1 /hpf (0-3); Specific Gravity,Urine 1.015 (1.001-1.035); Urobilinogen,Urine Negative mg/dL (0.0-1.0); WBC,Urine 34 /hpf (0-5)
[2024-08-29] MEDS: TRIMETHOPRIM/SULFA 160/800 DS TABLET 1 TAB PO (21:57)
[2024-08-29] MEDS: KETOROLAC INJ 30 MG/ML VIAL IM (22:02)
[2024-08-29 22:17] VITALS: RESP 16
== END 2024-08-29 22:18 | disposition home or self-care (01) ==
PROVIDERS: Nurse Practitioner Family; Emergency Provider Emergency Medicine; PCP Family Medicine
DX: B37.0 Candidal stomatitis (principal); K29.70 Gastritis, unspecified, without bleeding; N39.0 Urinary tract infection, site not specified
CPT/HCPCS: 36415; 76705; 80053; 81001; 83690; 85025; 87491; 87591; 87661; 96372; 99283; J1885; Q0162; A9270